=== PATIENT | female | born 1990 | race Caucasian/White ===

== ENCOUNTER 2016-06-01 11:27 | Emergency (ER) | payer OTHER ==
[2016-06-01 11:54] VITALS: BP 114/66
[2016-06-01 12:05] LABS: Hematocrit 42 % (35-47); Hemoglobin 14.4 g/dl (12.0-16.0); Mean Corpuscular HGB Conc 34 g/dl (31-36); Mean Corpuscular Hemoglobin 30 pg (27-31); Mean Corpuscular Volume 89 fL (80-97); Mean Platelet Volume 8 um3 (7.4-10.4); Red Blood Count 4.77 10^6/ul (4.0-5.4); Red Cell Distribution Width 13 % (10.5-15); White Blood Count 9.7 10^3/ul (3.5-10.8)
[2016-06-01 12:09] LABS: Urine Bilirubin Negative (Negative); Urine Glucose Negative (Negative); Urine Nitrite Negative (Negative)
[2016-06-01 12:20] LABS: ALT 23 U/L (7-52); AST 20 U/L (13-39); Albumin 4.3 g/dL (3.2-5.2); Alkaline Phosphatase 54 U/L (34-104); Anion Gap 6 mmol/L (2-11); Blood Urea Nitrogen 15 mg/dL (6-24); CO2 Carbon Dioxide 24 mmol/L (22-32); Chloride 107 mmol/L (101-111); EGFR African American 154.2 (>60); EGFR Non-African American 119.9 (>60); Globulin 2.5 g/dL (2-4); Glucose 91 mg/dL (70-100); Sodium 137 mmol/L (133-145); Total Protein 6.8 g/dL (6.4-8.9)
[2016-06-01 12:29] LABS: Benzodiazepine Urine Screen None Detected (None Detect)
[2016-06-01 12:43] LABS: Acetaminophen < 15 mcg/mL; Alcohol < 10 mg/dL (<10); Salicylate < 2.50 mg/dL (<30)
[2016-06-01 12:53] LABS: TSH (Thyroid Stimulating Horm) 1.48 mcIU/mL (0.34-5.60)
--- NOTE | 2016-06-01 15:34 | ED ---
Robbin Juan Billy, scribed for Rogers Velasco MD on 06/01/16 at 1231 . Psychiatric Complaint - HPI Summary HPI Summary: Patient is a 26 year-old female coming to [facility] for evaluation of her depression. Patient has a history of anxiety and depression, which has been made worse in the last few months due to stressors related to moving. She moved to [place] from [place] in November 2015, and moved again to [place] in February 2016. She was previously hospitalized for psychiatric treatment 3 years ago. She has had positive suicidal ideation since yesterday without any concrete plans, although she has a self-inflicted laceration on the left forearm. She denies any change in appetite or sleep. She states she started new medications yesterday. Last tetanus unknown. - History Of Current Complaint Chief Complaint: EDMentalHealth Time Seen by Provider: 06/01/16 11:45 Hx Obtained From: Patient Onset/Duration: Gradual Onset, Worse Since - worse since yesterday Timing: Constant Severity Initially: Moderate Severity Currently: Moderate Character: Depressed Aggravating Factor(s): Recent Stress Alleviating Factor(s): Nothing Associated Signs And Symptoms: Negative: Hallucinating, Sleep Disturbance, Appetite Change Related History: Positive For: Prior Psychiatric Issues Has Suicidal: Reports: Thoughts. Denies: With A Plan Has Homicidal: Denies: Thoughts, With A Plan - Allergies/Home Medications Allergies/Adverse Reactions: Allergies Allergy/AdvReac Type Severity Reaction Status Date / Time No Known Allergies Allergy Verified 06/01/16 11:44 Home Medications: Home Medications FLUoxetine CAP* [PROzac CAP*] 40 mg PO DAILY 06/01/16 [History Confirmed ] clonazePAM TAB(*) [Klonopin TAB(*)] 1 mg PO DAILY MDD 2 06/01/16 [History Confirmed 06/01/16] PMH/Surg Hx/FS Hx/Imm Hx Respiratory History: Reports: Hx Asthma Psychiatric History: Reports: Hx Anxiety, Hx Depression, Hx Post Traumatic Stress Disorder Infectious Disease History: No Infectious Disease History: Denies: Traveled Outside the [place] in Last 30 Days - Family History Known Family History: Negative: Cardiac Disease, Hypertension, Diabetes - Social History Alcohol Use: Daily Alcohol Amount: 4 beers daily lately, none today Substance Use Type: Reports: Marijuana Substance Use Comment - Amount & Last Used: prn, none today Smoking Status (MU): Light Every Day Tobacco Smoker Review of Systems Positive: Other - lac Positive: Depressed, Other - SI All Other Systems Reviewed And Are Negative: Yes Physical Exam - Summary Physical Exam Summary: VITAL SIGNS: Reviewed. GENERAL: Patient is a well developed and nourished female who is lying comfortable in the stretcher. Patient is not in any acute respiratory distress. HEAD AND FACE: Normocephalic EYES: PERRLA, EOMI x 2. EARS: Hearing grossly intact. MOUTH: Oropharynx within normal limits. NECK: Supple, trachea is midline, no adenopathy, no JVD, no carotid bruit. CHEST: Symmetric, no tenderness at palpation LUNGS: Clear to auscultation bilaterally. No wheezing or crackles. CVS: Regular rate and rhythm, S1 and S2 present, no murmurs or gallops appreciated. ABDOMEN: Soft, non-tender. Bowel sounds are normal. No abdominal abnormal pulsations. EXTREMITIES: Full ROM in all major joints, no edema, no cyanosis or clubbing. NEURO: Alert and oriented x 3. No acute neurological deficits. Speech is normal and follows commands. PSYCH: She is sad and tearful and exhibits a flat affect. She has suicidal ideation without any concrete plan. No homicidal ideation. SKIN: Dry and warm. There is a self-inflicted laceration of approximately 2 cm to the left forearm since yesterday. No signs of erythema or purulent discharge. Triage Information Reviewed: Yes Vital Signs On Initial Exam: Initial Vitals Temp Pulse Resp BP Pulse Ox 97.5 F 70 19 114/66 97 06/01/16 11:46 06/01/16 11:46 06/01/16 11:46 06/01/16 11:46 06/01/16 11:46 Vital Signs Reviewed: Yes - Byron Coma Scale Coma Scale Total: 15 Diagnostics - Vital Signs Vital Signs Temp Pulse Resp BP Pulse Ox 06/01/16 11:46 97.5 F 70 19 114/66 97 - Laboratory Lab Results: Lab Results 06/01/16 06/01/16 Range/Units 11:25 11:55 WBC 9.7 (3.5-10.8) 10^3/ul RBC 4.77 (4.0-5.4) 10^6/ul Hgb 14.4 (12.0-16.0) g/dl Hct 42 (35-47) % MCV 89 (80-97) fL MCH 30 (27-31) pg MCHC 34 (31-36) g/dl RDW 13 (10.5-15) % Plt Count 259 (150-450) 10^3/ul MPV 8 (7.4-10.4) um3 Neut % (Auto) 65.6 (38-83) % Lymph % (Auto) 22.7 L (25-47) % [place] % (Auto) 7.6 (1-9) % Eos % (Auto) 3.3 (0-6) % Baso % (Auto) 0.8 (0-2) % Absolute Neuts (auto) 6.4 (1.5-7.7) 10^3/ul Absolute Lymphs (auto) 2.2 (1.0-4.8) 10^3/ul Absolute Monos (auto) 0.7 (0-0.8) 10^3/ul Absolute Eos (auto) 0.3 (0-0.6) 10^3/ul Absolute Basos (auto) 0.1 (0-0.2) 10^3/ul Absolute Nucleated RBC 0.01 10^3/ul Nucleated RBC % 0.1 Urine Color Yellow Urine Appearance Clear Urine pH 7.0 (5-9) Ur Specific [place] 1.016 (1.010-1.030) Urine Protein Negative (Negative) Urine Ketones Negative (Negative) Urine Blood Negative (Negative) Urine Nitrate Negative (Negative) Urine Bilirubin Negative (Negative) Urine Urobilinogen Negative (Negative) Ur Leukocyte Esterase Negative (Negative) Urine Glucose Negative (Negative) Result Diagrams: 06/01/16 11:55 06/01/16 11:55 Lab Statement: Any lab studies that have been ordered have been reviewed, and results considered in the medical decision making process. Re-Evaluation - Re-Evaluation First Eval Re-Evaluation Time: 12:50 Course/Dx - Course Course Of Treatment: Medically clear for mental health evaluation at 1232. Assessment/Plan: Patient is a 26 year-old female coming to [facility] for evaluation of her depression. Patient has a history of anxiety and depression, which has been made worse in the last few months due to stressors related to moving. She moved to [place] from [place] in November 2015, and moved again to [place] in February 2016. She was previously hospitalized for psychiatric treatment 3 years ago. She has had positive suicidal ideation since yesterday without any concrete plans, although she has a self-inflicted laceration on the left forearm. She denies any change in appetite or sleep. She states she started new medications yesterday. Last tetanus unknown. Bloodwork WNL. Laceration of the left forearm unable to repair with sutures since it has been >12 hours. We irrigated it once and placed steri-strips. She was given tetanus booster. At this point, I re-evaluated the patient and she is awaiting MHE. Dr. Hernandez evaluated and assessed the patient and believes she is safe to discharge home for outpatient management follow up. Patient is hemodynamically stable, A&Ox3. - Differential Dx/Clinical Impression Differential Diagnosis/HQI/PQRI: Positive: Depression, Suicidal Ideation Provider Diagnosis: Depression - Physician Notifications Discussed Care Of Patient With: Shirin (mental health) @ [id number]: Dr. Hernandez has evaluated the patient and determined that she is safe for discharge. Discharge - Discharge Plan Condition: Stable Disposition: HOME Referrals: [facility] PHYSICIAN REFERRAL [Outside] The documentation as recorded by the Robbin beasley Billy accurately reflects the service I personally performed and the decisions made by me, Rogers Velasco MD.
== END 2016-06-01 15:18 | disposition home or self-care (01) ==
LOC: ED 11:27
DX: F32.9 Major depressive disorder, single episode, unspecified (principal); R45.851 Suicidal ideations; F17.210 Nicotine dependence, cigarettes, uncomplicated
CPT/HCPCS: 36415; 80053; 80307; 80320; 80329; 81003; 84443; 85025; 99284; G0480

== ENCOUNTER 2016-06-02 13:22 | Inpatient (IN) | payer OTHER ==
[2016-06-02] MEDS ORDERED: NS 0.9% 1000 ML* 1,000 ML IV ONE ×2 (13:41→18:37)
[2016-06-02] MEDS ORDERED: Pantoprazole IV* 40 MG IV ONE (13:41)
[2016-06-02] MEDS ORDERED: Ondansetron INJ* 2 MG/ML VIAL IV ONE (13:41)
[2016-06-02 14:45] LABS: Hematocrit 45 % (35-47); Hemoglobin 15.2 g/dl (12.0-16.0); Mean Corpuscular HGB Conc 34 g/dl (31-36); Mean Corpuscular Hemoglobin 30 pg (27-31); Mean Corpuscular Volume 90 fL (80-97); Mean Platelet Volume 8 um3 (7.4-10.4); Red Blood Count 5.03 10^6/ul (4.0-5.4); Red Cell Distribution Width 13 % (10.5-15); White Blood Count 13.6 10^3/ul (3.5-10.8)
[2016-06-02 14:49] LABS: Urine Bilirubin 2+ (Negative); Urine Glucose Negative (Negative); Urine Nitrite Negative (Negative)
[2016-06-02 15:05] LABS: ALT 21 U/L (7-52); AST 20 U/L (13-39); Albumin 4.5 g/dL (3.2-5.2); Alkaline Phosphatase 61 U/L (34-104); Anion Gap 9 mmol/L (2-11); BUN/Creatinine Ratio 25.4 (8-20); Blood Urea Nitrogen 17 mg/dL (6-24); CO2 Carbon Dioxide 20 mmol/L (22-32); Calcium 8.6 mg/dL (8.6-10.3); Chloride 108 mmol/L (101-111); EGFR African American 135.8 (>60); EGFR Non-African American 105.6 (>60); Globulin 2.6 g/dL (2-4); Glucose 95 mg/dL (70-100); Potassium 4.5 mmol/L (3.5-5.0); Sodium 137 mmol/L (133-145); Total Protein 7.1 g/dL (6.4-8.9)
[2016-06-02 15:08] LABS: Benzodiazepine Urine Screen Presumptive Positive (None Detect)
[2016-06-02 15:19] LABS: Acetaminophen < 15 mcg/mL; Alcohol < 10 mg/dL (<10); Salicylate < 2.50 mg/dL (<30)
--- NOTE | 2016-06-02 22:53 | ED ---
Brenda Juan Claudia, scribed for Lupillo Trejo MD on 06/02/16 at 1350 . Psychiatric Complaint - HPI Summary HPI Summary: 26 year old female presents to the ED via EMS with psychiatric complaint. Per EMS pt ingested an unknown amount of bleach witnessed by her friend and suspected 5% ammonia solution of Windex. Police note that also found cords hanging from the ceiling as if she intended to do harm to herself. Pt was [place] [facility] [place] and was d/c last night. Her friend also noted that she wanted to hurt herself with a drill last night. Pt has a PMHx of Anxiety, Depression and PTSD. - History Of Current Complaint Time Seen by Provider: 06/02/16 13:24 Hx Obtained From: EMS Onset/Duration: Sudden Onset, Lasting Hours, Still Present Character: Depressed Aggravating Factor(s): Nothing Alleviating Factor(s): Nothing Has Suicidal: Reports: Thoughts, With A Plan Ingestion History: Type/Name Of Drug - Bleach and Windex -(5% ammonia solution) - Allergies/Home Medications Allergies/Adverse Reactions: Allergies Allergy/AdvReac Type Severity Reaction Status Date / Time No Known Allergies Allergy Verified 06/01/16 11:44 Home Medications: Home Medications Pindolol(NF) 10 mg PO QPM 06/02/16 [History Confirmed 06/02/16] Topiramate TAB(*) [Topamax 100 mg tab] 100 mg PO QPM 06/02/16 [History Confirmed 06/02/16] PMH/Surg Hx/FS Hx/Imm Hx Previously Healthy: Yes Cardiovascular History: Denies: Hx Myocardial Infarction Respiratory History: Reports: Hx Asthma Psychiatric History: Reports: Hx Anxiety, Hx Depression, Hx Post Traumatic Stress Disorder Denies: Hx Eating Disorder, Hx of Violent Episodes Against Others - Family History Known Family History: Negative: Cardiac Disease, Hypertension, Diabetes - Social History Lives: With Family - significant other Alcohol Use: Daily Alcohol Amount: 4 beers daily lately, none today Substance Use Type: Reports: Marijuana Substance Use Comment - Amount & Last Used: prn, none today Smoking Status (MU): Light Every Day Tobacco Smoker Review of Systems Constitutional: Negative Negative: Fever Eyes: Negative ENT: Negative Cardiovascular: Negative Negative: Chest Pain Respiratory: Negative Gastrointestinal: Negative Genitourinary: Negative Musculoskeletal: Negative Skin: Negative Neurological: Negative Psychological: Normal All Other Systems Reviewed And Are Negative: Yes Physical Exam Triage Information Reviewed: Yes Vital Signs On Initial Exam: Initial Vitals Temp Pulse Resp BP Pulse Ox 98.9 F 99 24 111/80 98 06/02/16 14:29 06/02/16 14:29 06/02/16 14:29 06/02/16 14:29 06/02/16 14:29 Vital Signs Reviewed: Yes Appearance: Positive: Well-Appearing, No Pain Distress Skin: Positive: Warm, Skin Color Reflects Adequate Perfusion, Dry, Other - superficial lacerations to her right arm and the volar surafce and posterior surface of her right hand Head/Face: Positive: Normal Head/Face Inspection Eyes: Positive: Normal ENT: Positive: Normal ENT inspection Neck: Positive: Supple, Nontender, Other: - superficial lacerations bilaterally Respiratory/Lung Sounds: Positive: Clear to Auscultation, Breath Sounds Present Cardiovascular: Positive: RRR Abdomen Description: Positive: Nontender, Soft Musculoskeletal: Positive: Normal Neurological: Positive: Normal, Sensory/Motor Intact, Alert, Oriented to Person Place, Time Psychiatric: Positive: Affect/Mood Appropriate Diagnostics - Vital Signs Vital Signs Temp Pulse Resp BP Pulse Ox 06/02/16 21:30 107 110/74 97 06/02/16 21:00 76 16 90/56 100 06/02/16 20:30 74 17 91/61 100 06/02/16 20:00 79 88/51 100 06/02/16 19:30 77 15 90/51 100 06/02/16 19:00 76 17 88/64 100 06/02/16 18:47 91 23 94/65 100 06/02/16 18:31 101 25 87/59 96 06/02/16 18:23 88 16 104/67 99 06/02/16 18:01 97 21 96/57 99 06/02/16 18:00 98 21 100 06/02/16 17:30 89 15 100/61 86 06/02/16 17:00 88 96/69 100 06/02/16 16:30 99/72 06/02/16 16:26 88 23 89/54 98 06/02/16 16:00 89 16 98 06/02/16 15:12 98 99 06/02/16 14:41 98.9 F 93 24 111/80 98 06/02/16 14:29 98.9 F 99 24 111/80 98 - Laboratory Lab Results: Lab Results 06/02/16 06/02/16 06/02/16 Range/Units 14:25 14:25 14:25 WBC 13.6 H (3.5-10.8) 10^3/ul RBC 5.03 (4.0-5.4) 10^6/ul Hgb 15.2 (12.0-16.0) g/dl Hct 45 (35-47) % MCV 90 (80-97) fL MCH 30 (27-31) pg MCHC 34 (31-36) g/dl RDW 13 (10.5-15) % Plt Count 272 (150-450) 10^3/ul MPV 8 (7.4-10.4) um3 Neut % (Auto) 68.1 (38-83) % Lymph % (Auto) 21.2 L (25-47) % [place] % (Auto) 8.8 (1-9) % Eos % (Auto) 1.5 (0-6) % Baso % (Auto) 0.4 (0-2) % Absolute Neuts (auto) 9.2 H (1.5-7.7) 10^3/ul Absolute Lymphs (auto) 2.9 (1.0-4.8) 10^3/ul Absolute Monos (auto) 1.2 H (0-0.8) 10^3/ul Absolute Eos (auto) 0.2 (0-0.6) 10^3/ul Absolute Basos (auto) 0.1 (0-0.2) 10^3/ul Absolute Nucleated RBC 0 10^3/ul Nucleated RBC % 0 Sodium 137 (133-145) mmol/L Potassium 4.5 (3.5-5.0) mmol/L Chloride 108 (101-111) mmol/L Carbon Dioxide 20 L (22-32) mmol/L Anion Gap 9 (2-11) mmol/L BUN 17 (6-24) mg/dL Creatinine 0.67 (0.51-0.95) mg/dL Est GFR ( Amer) 135.8 (>60) Est GFR (Non-Af Amer) 105.6 (>60) BUN/Creatinine Ratio 25.4 H (8-20) Glucose 95 (70-100) mg/dL Lactic Acid (0.5-2.0) mmol/L Calcium 8.6 (8.6-10.3) mg/dL Total Bilirubin 0.40 (0.2-1.0) mg/dL AST 20 (13-39) U/L ALT 21 (7-52) U/L Alkaline Phosphatase 61 (34-104) U/L Total Protein 7.1 (6.4-8.9) g/dL Albumin 4.5 (3.2-5.2) g/dL Globulin 2.6 (2-4) g/dL Albumin/Globulin Ratio 1.7 (1-3) Beta HCG, Quant < 0.60 mIU/mL Urine Color Yellow Urine Appearance Cloudy Urine pH 5.0 (5-9) Ur Specific [place] 1.021 (1.010-1.030) Urine Protein Negative (Negative) Urine Ketones Trace H (Negative) Urine Blood Negative (Negative) Urine Nitrate Negative (Negative) Urine Bilirubin 2+ H (Negative) Urine Urobilinogen Negative (Negative) Ur Leukocyte Esterase Negative (Negative) Urine Glucose Negative (Negative) Salicylates < 2.50 (<30) mg/dL Urine Opiates Screen (None Detect) Acetaminophen < 15 mcg/mL Ur Barbiturates Screen (None Detect) Ur Phencyclidine Scrn (None Detect) Ur Amphetamines Screen (None Detect) U Benzodiazepines Scrn (None Detect) Urine Cocaine Screen (None Detect) U Cannabinoids Screen (None Detect) Serum Alcohol < 10 (<10) mg/dL 06/02/16 06/02/16 Range/Units 14:25 14:25 WBC (3.5-10.8) 10^3/ul RBC (4.0-5.4) 10^6/ul Hgb (12.0-16.0) g/dl Hct (35-47) % MCV (80-97) fL MCH (27-31) pg MCHC (31-36) g/dl RDW (10.5-15) % Plt Count (150-450) 10^3/ul MPV (7.4-10.4) um3 Neut % (Auto) (38-83) % Lymph % (Auto) (25-47) % [place] % (Auto) (1-9) % Eos % (Auto) (0-6) % Baso % (Auto) (0-2) % Absolute Neuts (auto) (1.5-7.7) 10^3/ul Absolute Lymphs (auto) (1.0-4.8) 10^3/ul Absolute Monos (auto) (0-0.8) 10^3/ul Absolute Eos (auto) (0-0.6) 10^3/ul Absolute Basos (auto) (0-0.2) 10^3/ul Absolute Nucleated RBC 10^3/ul Nucleated RBC % Sodium (133-145) mmol/L Potassium (3.5-5.0) mmol/L Chloride (101-111) mmol/L Carbon Dioxide (22-32) mmol/L Anion Gap (2-11) mmol/L BUN (6-24) mg/dL Creatinine (0.51-0.95) mg/dL Est GFR ( Amer) (>60) Est GFR (Non-Af Amer) (>60) BUN/Creatinine Ratio (8-20) Glucose (70-100) mg/dL Lactic Acid 0.7 (0.5-2.0) mmol/L Calcium (8.6-10.3) mg/dL Total Bilirubin (0.2-1.0) mg/dL AST (13-39) U/L ALT (7-52) U/L Alkaline Phosphatase (34-104) U/L Total Protein (6.4-8.9) g/dL Albumin (3.2-5.2) g/dL Globulin (2-4) g/dL Albumin/Globulin Ratio (1-3) Beta HCG, Quant mIU/mL Urine Color Urine Appearance Urine pH (5-9) Ur Specific [place] (1.010-1.030) Urine Protein (Negative) Urine Ketones (Negative) Urine Blood (Negative) Urine Nitrate (Negative) Urine Bilirubin (Negative) Urine Urobilinogen (Negative) Ur Leukocyte Esterase (Negative) Urine Glucose (Negative) Salicylates (<30) mg/dL Urine Opiates Screen None detected (None Detect) Acetaminophen mcg/mL Ur Barbiturates Screen None detected (None Detect) Ur Phencyclidine Scrn None detected (None Detect) Ur Amphetamines Screen None detected (None Detect) U Benzodiazepines Scrn Presumptive positive H (None Detect) Urine Cocaine Screen None detected (None Detect) U Cannabinoids Screen None detected (None Detect) Serum Alcohol (<10) mg/dL Result Diagrams: 06/02/16 14:25 06/02/16 14:25 Lab Statement: Any lab studies that have been ordered have been reviewed, and results considered in the medical decision making process. Course/Dx - Course Course Of Treatment: Ms. Cruz's story changed several times while here. She was observed for 6 hours with no change in her clinical condition after decontamination. She is medically cleared and we are awaiting MHE. Assessment/Plan: Code Adan Called 13:30 - Differential Dx/Clinical Impression Provider Diagnosis: Depression - Physician Notifications Discussed Care Of Patient With: Dr. Maria at change of shift Patient Is Medically Stable For: Psych Evaluation - 18:27 medically cleared Discharge - Discharge Plan Condition: Stable Disposition: OTHER Discharge Disposition Comment: Change of shift Referrals: Non Staff,Doctor [Primary Care Provider] - The documentation as recorded by the Brenda beasley Claudia accurately reflects the service I personally performed and the decisions made by me, Lupillo Trejo MD.
[2016-06-03] MEDS ORDERED: LORazepam TAB(*) 1 MG ONE (01:50)
[2016-06-03] MEDS ORDERED: LORazepam TAB(*) 1 MG PO ONE (01:55)
[2016-06-03] MEDS ORDERED: Al Hydrox/Mg Hydrox/Simet LIQ* 30 ML UDC PO PRN (06:16)
[2016-06-03] MEDS ORDERED: Acetaminophen TAB* 325 MG PO PRN (06:16)
[2016-06-03] MEDS ORDERED: Haloperidol TAB* 5 MG PO PRN (06:17)
[2016-06-03] MEDS ORDERED: LORazepam TAB(*) 1 MG PO PRN (06:21)
[2016-06-03] MEDS: Vitamin THERAPEUTIC TAB PO SCH (11:01)
[2016-06-03] MEDS: FLUoxetine CAP* 20 MG PO SCH (11:01)
[2016-06-03] MEDS: hydrOXYzine HCL TAB* 50 MG PO PRN ×2 (11:08→17:30)
--- NOTE | 2016-06-03 14:55 | HP ---
DATE OF ADMISSION: 06/03/2016. IDENTIFYING INFORMATION: The patient is a 26-year-old, white female admitted to the facility on 06/03/2016. The patient was seen, attempted to exam her and case was discussed with clinical staff available at the time of the visit. CHIEF COMPLAINT/REASON FOR ADMISSION: Note: At the time of my attempted clinical interview, the patient had been medicated with a combination of Haldol and Ativan and was extraordinarily somnolent and unable to participate in the clinical interview; therefore, the vast majority of this history and physical is obtained via chart review. HISTORY OF PRESENT ILLNESS: The patient was apparently brought to [facility] on a 9.41 status via ambulance secondary to anger, depression, and an attempted suicide. Apparently the patient had presented to [facility] on a 9.41 status after an overdose attempt to end her life. Apparently, she was having relational issues with her girlfriend. According to the triage note from the emergency department dated 06/02/2016, the patient informed the ER staff that she drank two cups of Clorox bleach as well as a half a bottle of Windex with intentions to end her life. Apparently, the patient also poured bleach over herself necessitating a code orange. EMS staff allegedly reported to the emergency room staff that "strong wires were found hanging from the ceiling in the form of a noose." When evaluated by the mental health destination imagination coordinator, the patient had stated that she was angry and depressed and jealous of her girlfriend. Apparently, she had seen pictures of her girlfriend with her ex-girlfriend and became quite angered. She had also apparently been drinking alcohol at that time, approximately four or five beers. There was also mention in the clinical record that the patient had impulsively chugged antifreeze, which she reported that she immediately vomited. PAST PSYCHIATRIC HISTORY: Apparently, the patient had seen Dr. King a few days ago on an outpatient basis. There is also mention in the triage record of her having visited [facility] on an outpatient basis. No other information about previous psychiatric hospitalizations is available to me at this time; however, there is mention in the clinical record of past psychotropic medication use, which has included but is not limited to Prozac, Pindolol, Klonopin, Topamax. PAST MEDICAL HISTORY: Positive for asthma. No other past medical history is available at this time. PAST SUBSTANCE USE HISTORY: The patient admitted in triage to consuming alcohol roughly every other day in the form of three to four beers. Her last use of alcohol was apparently yesterday. PSYCHOSOCIAL HISTORY: Per the emergency room attending physician's note, the patient was with her significant other. No other psychosocial history is available at this time. REVIEW OF SYSTEMS: At this time, I am unable to complete the review of systems with the past. PHYSICAL EXAMINATION At this time, I am unable to elicit the patient's cooperation and/or consent to perform a comprehensive physical examination. LABORATORY DATA: Review of laboratory data undertaken at this time, the following abnormals are noted. Hematology studies demonstrate an elevated white blood cell count at 13.6, lymphocyte percentage low at 21.2, absolute neutrophils are elevated at 9.2, absolute mono's are elevated at 1.2, remainder of hematology studies were within normal parameters. Chemistry studies demonstrate the following abnormalities: Carbon dioxide is low to 20, BUN/ creatinine ratio is elevated at 25.4, remainder of chemistries studies were within normal parameters. Urinalysis demonstrated trace ketones and 2+ urine bilirubin. Urine toxicology demonstrates a presumptive positive result for the benzodiazepine screen. There are no other laboratory studies available at this time for review. MENTAL STATUS EXAM: At this time, I am unable to complete the comprehensive mental status exam on this patient. IMPRESSION: The patient is a 26-year-old white female admitted to this facility on a 9.39 status after attempted suicide. She, at this time, is unable to participate in the initial admission assessment secondary to somnolence after requiring medication with Haldol and Ativan following an explosive argument with her significant other on the telephone. ADMITTING DIAGNOSES: Rule out major depressive disorder versus intermittent explosive disorder versus unspecified mood disorder. PLAN OF TREATMENT: Admit to Behavioral Services Unit. Diet will be regular. Vital signs per unit protocol. Activity as tolerated with restrictions to the unit. The patient will participate in treatment planning activities, individual , group and milieu therapy, as well as medication management sessions and discharge plan until she is stable or referred to a higher level of care. Treatment goal is stabilization. Prognosis is fair. Estimated length of stay is seven to ten days. DISCHARGE CRITERIA: The patient will be discharged when she is no longer a risk to herself or others and has met the criteria set forth by the treatment team for discharge. JAGDISH GARZON, ANNEALING FURNACE OPERATOR [id number]/[facility] #: [id number] CATHOLIC HEALTHRanjit
--- NOTE | 2016-06-03 19:57 | RAD ---
Indication: Fall, head injury. CT of the brain was performed without IV contrast. Ventricular structures are midline. No midline shift is noted. The extra-axial spaces are unremarkable. There is no evidence of intracranial mass or hemorrhage. Mastoid air cells and paranasal sinuses are otherwise unremarkable. IMPRESSION: No intracranial mass or hemorrhage is noted.
--- NOTE | 2016-06-04 08:17 | PN ---
Subjective - Subjective Service Type: 02908 Hosp care 25 min moderate complexity Subjective: CAT team was called as I was walking into the building around 730am. Staff note patient had been up for 1+ hour and had been selectively speaking with some staff. Staff report that she was able to make her needs known, but speech was slurred. Staff note that she was found on the floor and was unresponsive. She was lying on her back, off the seizure mat. Her eyes were open, she was breathing heavily with audible moan. She was not responsive to staff's attempts to engage. The CAT team decided to transfer her to Medicine for medical work- up. Objective - Appearance Appearance: Other - see Subjective Plan - Plan Treatment Plan: Name: SUBHASH MERINO Birthdate: 1990 [id number] Medications: Current Medications Acetaminophen (Tylenol Tab*) 650 mg PO Q4H PRN PRN Reason: PAIN or TEMP > 101 F Last Admin: 06/03/16 11:07 Dose: 650 mg Al Hydrox/Mg Hydrox/Simethicone (Maalox Plus*) 30 ml PO Q4H PRN PRN Reason: INDIGESTION Fluoxetine HCl (Prozac Cap*) 40 mg PO DAILY SHIRAZ Last Admin: 06/03/16 11:01 Dose: 40 mg Hydroxyzine HCl (Atarax Tab*) 50 mg PO Q6H PRN PRN Reason: ANXIETY Last Admin: 06/03/16 17:30 Dose: 50 mg Multivitamins (Theragran Tab*) 1 tab PO DAILY [facility] Last Admin: 06/03/16 11:01 Dose: 1 tab
[2016-06-04] MEDS ORDERED: LORazepam INJ* 2 MG/ML 1 ML VIAL IV PUSH PRN (08:20)
[2016-06-04] MEDS ORDERED: NS 0.9% 1000 ML* 1,000 ML IV SCH (08:30)
[2016-06-04 09:28] LABS: Hematocrit 52 % (35-47); Hemoglobin 16.8 g/dl (12.0-16.0); Mean Corpuscular HGB Conc 32 g/dl (31-36); Mean Corpuscular Hemoglobin 30 pg (27-31); Mean Corpuscular Volume 94 fL (80-97); Mean Platelet Volume 8 um3 (7.4-10.4); Red Blood Count 5.58 10^6/ul (4.0-5.4); Red Cell Distribution Width 13 % (10.5-15); White Blood Count 44.2 10^3/ul (3.5-10.8)
[2016-06-04 09:31] LABS: Add Diff/Slide Review? Slide Review Added; Comments Flag Yes
[2016-06-04 09:43] LABS: ALT 27 U/L (7-52); Albumin 5.2 g/dL (3.2-5.2); Alkaline Phosphatase 91 U/L (34-104); BUN/Creatinine Ratio 16.2 (8-20); Blood Urea Nitrogen 21 mg/dL (6-24); Calcium 9.1 mg/dL (8.6-10.3); Chloride 103 mmol/L (101-111); Creatine Kinase 189 U/L (10-223); EGFR African American 63.2 (>60); EGFR Non-African American 49.1 (>60); Globulin 3.3 g/dL (2-4); Glucose 215 mg/dL (70-100); Sodium 131 mmol/L (133-145); Total Protein 8.5 g/dL (6.4-8.9)
[2016-06-04] MEDS ORDERED: NS 0.9% 1000 ML* 2,000 ML IV ONE (10:06)
[2016-06-04] MEDS: FLUoxetine CAP* 20 MG PO SCH (10:08)
[2016-06-04] MEDS: Vitamin THERAPEUTIC TAB PO SCH (10:08)
[2016-06-04 10:18] LABS: Prolactin 72.3 ng/mL (1.0-25.0)
[2016-06-04 10:21] LABS: PCO2 Arterial 10 mmHg (35-45)
[2016-06-04 10:24] LABS: Urine Bacteria Absent (Absent); Urine Bilirubin Negative (Negative); Urine Glucose Negative (Negative); Urine Nitrite Negative (Negative)
[2016-06-04] MEDS: Lactulose 300 ML for PR* 10 GM/15 ML BTL PR SCH ×2 (10:24→17:41)
[2016-06-04 10:34] LABS: Benzodiazepine Urine Screen None Detected (None Detect)
[2016-06-04] MEDS ORDERED: Propofol* 100 ML ONE (10:36)
[2016-06-04] MEDS ORDERED: Vancomycin per Pharmacy* NOTE FOLLOW UP PRN (10:42)
[2016-06-04] MEDS ORDERED: fentaNYL* 50 MCG/ML 5 ML VIAL (250 MCG VIAL) ONE (10:44)
--- NOTE | 2016-06-04 10:44 | PN ---
Hospitalist Progress Note HOSPITALIST ADDENDUM Labs reviewed and patient re-evaluated at bedside. CBC showed WBC 44k with 90% neut, CMP creat 1.3, ammonia 215, ABG pH<7, pCO2 10. Transferred immediately to ICU for further management. Clinical picture compatible with metabolic acidosis, unable to compensate with respiratory alkalosis, secondary to sepsis with MSOF vs ingestion. If infectious, source is unclear. Will panculture and start Vanco/Cefepime empirically. Continue aggressive IVF. With her history, possibility of ingestion is high on the differential list, but unclear what she really took. I called her SO (Odalis Lenz) and left a message asking her to call me back. Critical care consultation requested with Dr. Sanabria.
[2016-06-04] MEDS ORDERED: Propofol* 10 MG/ML 20 ML BTL IV PUSH ONE (10:48)
[2016-06-04] MEDS ORDERED: Vancomycin(*) 1,250 MG in NS 0.9% 250 ML* 250 ML IVPB ONE (11:00)
[2016-06-04] MEDS ORDERED: Cefepime(*) 1 GM in NS 0.9% 50 ML* 50 ML IVPB SCH (11:00)
[2016-06-04] MEDS ORDERED: Sodium Bicarbonate 8.4%* 50 ML SYRINGE ONE (11:16)
[2016-06-04] MEDS ORDERED: Sodium Bicarbonate 8.4% IV* 50 ML VIAL IV ONE (11:25)
[2016-06-04] MEDS ORDERED: LORazepam INJ* 2 MG/ML 1 ML VIAL IV PUSH ONE (11:26)
[2016-06-04] MEDS ORDERED: NS 0.9% IV ONE (11:29)
[2016-06-04 11:31] LABS: AST 28 U/L (13-39); Potassium 5.9 mmol/L (3.5-5.0)
[2016-06-04 11:45] LABS: Anion Gap 21.00001 mmol/L (2-11)
[2016-06-04 11:47] LABS: CO2 Carbon Dioxide < 7 mmol/L (22-32)
[2016-06-04] MEDS ORDERED: LORazepam INJ* 2 MG/ML 1 ML VIAL ONE (11:47)
[2016-06-04] MEDS ORDERED: Propofol* 100 ML IV SCH (12:00)
[2016-06-04] MEDS: Pantoprazole IV* 40 MG IV SCH (12:12)
[2016-06-04] MEDS: Heparin VIAL(*) 5000 UNITS/ML VIAL (FIVE THOUSAND) SUBCUT SCH ×2 (12:12→21:11)
[2016-06-04 12:21] LABS: Magnesium 2.7 mg/dL (1.9-2.7); Phosphorus 8.2 mg/dL (2.5-5.0)
[2016-06-04] MEDS: Chlorhexidine MOUTHWASH 0.12%* 15 ML UDC TOPICAL SCH ×4 (12:48→23:41)
--- NOTE | 2016-06-04 13:11 | PN ---
Progress Note - Progress Note Note: CRITICAL CARE MEDICINE PROCEDURE NOTE DATE: 06/04/16 TIME: 1100 SERVICE: Critical Care Medicine LOCATION OF PROCEDURE: ICU PROCEDURE: Endotracheal intubation PROCEDURALIST: Dr. Sanabria Consent obtain: No, procedure performed emergently Time out held: Not indicated INDICATION: Acute respiratory failure, severe acidosis. PROCEDURE: Oxygenation maintained and vitals monitored. Patient in supine position. Bag ventilation needed. 2 amps NaHCO3 instilled. Pre-medication with fentanyl 200 mcg iv. Bradycardia anticipated and atropine 0.5mg given. Propofol 50mg iv given. Glidescope #3 inserted with Grade 1 view obtained. Thick oralpharyngeal secretions. 7.5 endotracheal tube inserted to 22cm lip. Good chest rise with breath sounds appreciated in bilaterally lung watson. EtCO2 + color change. Portable chest x-ray pending. Patient otherwise tolerated well. Jordin Sanabria, DO
--- NOTE | 2016-06-04 13:14 | PN ---
Progress Note - Progress Note Note: CRITICAL CARE MEDICINE PROCEDURE NOTE DATE: 06/04/16 TIME: 1115 SERVICE: Critical Care Medicine LOCATION OF PROCEDURE: ICU PROCEDURE: Central line insertion. PROCEDURALIST: Dr. Sanabria Consent obtain: No, procedure performed emergently Time out held: Yes INDICATION: Severe metabolic acidosis and hypovolemic shock. PROCEDURE: Oxygenation maintained and vitals monitored. Patient in supine position to [place]. SITE: RIGHT Subclavian. Site preparation with chlorhexidine locally. Full sterile drape, gown, hat, mask, gloves. 5ml 1% Lidocaine utilized at incision site. Standard sterile Seldinger technique utilized and catheter was inserted to 16 cm and sutured in place. Good blood return. Minimal blood loss. Site dressed with tegaderm. Portable chest x-ray pending. Patient otherwise tolerated well. Jordin Sanabria DO
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
[2016-06-04] MEDS ORDERED: Thiamine IV* 100 MG/ML 2 ML VIAL IV ONE (14:20)
[2016-06-04] MEDS ORDERED: FOMEPIZOLE IVPB ONE (15:00)
[2016-06-04] MEDS ORDERED: NS 0.9% IVPB ONE (15:00)
[2016-06-04] MEDS: Sodium Bicarbonate 8.4% IV* 150 MEQ in D5W 1000 ML BAG* 1,000 ML IVPB SCH ×2 (15:21→21:17)
[2016-06-04] MEDS ORDERED: Calcium Gluconate INJ* 4 GM in NS 0.9% 250 ML* 250 ML IV ONE (18:00)
[2016-06-04] MEDS: Propofol* 100 ML IV SCH ×2 (18:20→21:37)
[2016-06-04] MEDS: KCL 20 MEQ/100 ML IVPREMIX* 20 MEQ/100 ML BAG IV SCH ×3 (18:28→23:08)
[2016-06-05] MEDS: Propofol* 100 ML IV SCH ×7 (02:26→21:47)
[2016-06-05] MEDS: FOMEPIZOLE IVPB SCH ×2 (02:32→15:56)
[2016-06-05] MEDS: NS 0.9% IVPB SCH ×2 (02:32→15:56)
[2016-06-05] MEDS: KCL 20 MEQ/100 ML IVPREMIX* 20 MEQ/100 ML BAG IV SCH ×2 (03:11→05:27)
[2016-06-05] MEDS: Chlorhexidine MOUTHWASH 0.12%* 15 ML UDC TOPICAL SCH ×5 (05:28→20:05)
[2016-06-05] MEDS: Heparin VIAL(*) 5000 UNITS/ML VIAL (FIVE THOUSAND) SUBCUT SCH ×3 (05:33→21:47)
[2016-06-05] MEDS ORDERED: Potassium Phosphate IV* 15 MMOLE in NS 0.9% 250 ML* 250 ML IVPB ONE (07:55)
[2016-06-05] MEDS: Sodium Bicarbonate 8.4% IV* 150 MEQ in D5W 1000 ML BAG* 1,000 ML IVPB SCH (09:00)
--- NOTE | 2016-06-05 11:28 | PN ---
Progress Note - Progress Note Note: CRITICAL CARE MEDICINE DATE: 06/05/16 TIME: 950 SUBJECTIVE: Patient seen and examined. PHYSICAL EXAM: Vital Signs: Reviewed. Neurologic: on prop. álvarez when lowered and grimace. pupils small and reactive. overbreathing on vent. HEENT: anciteric, ett in place, (should have mention with intubation note yesterday) no macro caustic injury seen in upper airways. Cardiovascular: distant, tachy, no m Respiratory: coarse bl, no rales Abdomen: soft, nt, no masses Extremities: areas of ecchymosis. inc edema Access: piv LABS: Reviewed. IMAGING: Reviewed. MEDICATIONS: Reviewed. ASSESSMENT: 26 F Severe AG metabolic acidosis - likely methanol (as her friends brought in [facility] [employer] fluid bottle which they state she might have drank - methyl alcohol) +/- ethylene glycol. Possible seizure sec to metabolic derangement Hypovolemic shock - improved Coma on icu admission - metabolic induced; improving Acute resp failure - stabilized Lactic acidosis - cleared Psychological derangement with suicide attempt PLAN: Neurologic: better. arousing off sedation this am and see where her dyanamics go. still may have significant multifactorial encephalopathy. see how her clinical course goes. may consider eeg for tomorrow. keep prop today. Cardiovascular: perfused. vol status up. off ivf today. off bicarb Respiratory: lali vent with pcv. may be able to covert to cpap depending on mentation. vent protection Gastrointestinal: ogt. sup. amm clear as expected. start tropic tf today to help bowel integrity. Renal/Metabolic: resuscitation recovery of renal function and toxin clearance. further labs pending still. off bicarb - now a bit alkalotic. repelte k, phos, etc and f/u Infectious Disease: no abx needs Hematology: hemoconcentration equilibrated now. hsq Endocrine: no steroids. glu ok Musculoskeletal: bedrest currently. Psych/Social: f/u with psych and family dynamics Supportive and preventative care as ordered. SUP: ppi VTE prophylaxis: heparin Place yusuf catheter given critical illness, monitoring needs for accurate assessment of NED and KDIGO criteria for critically ill patients and to avoid potential harms of urinary retention, skin breakdown/ulcers. Disposition: ICU, critical Code Status: Full Critical Care Time: 40min Jordin Sanabria DO
[2016-06-05] MEDS: Pantoprazole IV* 40 MG IV SCH (12:09)
[2016-06-05] MEDS ORDERED: D5W KCl 40 MEQ 1000 ML* 1,000 ML IV SCH (14:00)
[2016-06-05] MEDS ORDERED: Potassium Phosphate IV* 30 MMOLE in NS 0.9% 250 ML* 250 ML IVPB ONE (14:00)
[2016-06-05] MEDS: D5W KCl 40 MEQ 1000 ML* 1,000 ML IVPB SCH (20:27)
[2016-06-06] MEDS: Chlorhexidine MOUTHWASH 0.12%* 15 ML UDC TOPICAL SCH ×3 (00:03→08:52)
[2016-06-06] MEDS: Propofol* 100 ML IV SCH ×3 (01:00→08:17)
[2016-06-06] MEDS: NS 0.9% IVPB SCH (03:07)
[2016-06-06] MEDS: FOMEPIZOLE IVPB SCH (03:07)
[2016-06-06] MEDS: Heparin VIAL(*) 5000 UNITS/ML VIAL (FIVE THOUSAND) SUBCUT SCH (05:36)
[2016-06-06] MEDS: D5W KCl 40 MEQ 1000 ML* 1,000 ML IVPB SCH (06:32)
[2016-06-06 06:36] VITALS: BP 109/63
== END 2016-06-04 08:17 | disposition short-term general hospital (02) | DRG 753 ==
LOC: ED 13:22 → EEVIPCON 06-03 06:00 → OBSVTOIN 06-03 06:00 → BSU 06-03 06:00 → INTOOBSV 06-03 06:00 → MEDTELE 06-04 08:12 → INTOOBSV 06-04 10:45 → ICU 06-04 10:45 → OBSVTOIN 06-04 10:45
PROVIDERS: ADMIT Psychiatry & Neurology Psychiatry; ATTEND Psychiatry & Neurology Psychiatry
PROC: 0BH17EZ Insertion of Endotracheal Airway into Trachea, Via Natural or Artificial Opening (ICD-10-PCS; principal; 2016-06-04)
PROC: 05H533Z Insertion of Infusion Device into Right Subclavian Vein, Percutaneous Approach (ICD-10-PCS; 2016-06-04)
PROC: 5A1935Z Respiratory Ventilation, Less than 24 Consecutive Hours (ICD-10-PCS; 2016-06-04)
DX: F39 Unspecified mood [affective] disorder (principal); R57.1 Hypovolemic shock; J96.00 Acute respiratory failure, unspecified whether with hypoxia or hypercapnia; J96.02 Acute respiratory failure with hypercapnia; R40.20 Unspecified coma; E87.2 Acidosis; F63.81 Intermittent explosive disorder; J45.909 Unspecified asthma, uncomplicated; Z72.89 Other problems related to lifestyle; F32.9 Major depressive disorder, single episode, unspecified; T54.92XA Toxic effect of unspecified corrosive substance, intentional self-harm, initial encounter; T54.3X2A Toxic effect of corrosive alkalis and alkali-like substances, intentional self-harm, initial encounter; Y92.9 Unspecified place or not applicable; F41.9 Anxiety disorder, unspecified; F43.10 Post-traumatic stress disorder, unspecified; F17.200 Nicotine dependence, unspecified, uncomplicated; F12.90 Cannabis use, unspecified, uncomplicated; R40.2430 Glasgow coma scale score 3-8, unspecified time; T52.8X2A Toxic effect of other organic solvents, intentional self-harm, initial encounter
CPT/HCPCS: 36415; 36600; 70450; 71010; 71250; 80048; 80053; 80076; 80307; 80320; 80329; 81003; 81015; 82140; 82330; 82550; 82803; 83605; 83735; 83930; 84100; 84146; 84702; 85025; 85027; 85610; 87040; 87641; 94002; 94003; 94760; 96374; 96375; 99285; A9270-GY; G0480; J0610; J0692; J1644; J2060; J2405; J2704; J3010; J3370; J3475; J3480; J7060

== ENCOUNTER 2016-06-04 08:17 | Inpatient (IN) | payer OTHER ==
[~2016-06-04 08:17] MED LIST: Haloperidol TAB* 5 MG ONE; LORazepam TAB(*) 1 MG ONE
--- NOTE | 2016-06-04 09:03 | RAD ---
Amended report to correct patient account number. INDICATION: Exposure to chemicals. Evaluate for pneumonitis. COMPARISON: None TECHNIQUE: Noncontrast source images were obtained from the thoracic inlet to the hemidiaphragms. Coronal and sagittal reconstructed images were acquired. The examination is mildly limited due to motion artifact The visualized neck to include the thyroid appear normal. Chest wall: There are no acute abnormalities of the bony thorax or chest wall. There is no supraclavicular, infraclavicular, or axillary lymphadenopathy. Lungs : There are no pulmonary parenchymal masses or infiltrates. The pulmonary interstitium appears normal. There are no endobronchial lesions. Cardiomediastinal structures: The heart is normal in size. There is no pericardial effusion. There is no evidence of aortic aneurysm or dissection. The pulmonary vessels appear normal. There is no mediastinal or hilar adenopathy. The GE junction appears patulous. There is air within the esophagus. Pleura : There are no pleural-based masses or effusions. Other: There are no acute or significant CT findings of the visualized upper abdomen. IMPRESSION: Mildly limited examination due to motion artifact. No significant airspace disease. MTDD
--- NOTE | 2016-06-04 09:05 | RAD ---
Amended report to correct patient account number. INDICATION: Altered mental status COMPARISON: CT brain previous day TECHNIQUE: Noncontrast axial source images were acquired from the skull base to the vertex. This examination is limited due to motion artifact. Multiple images were repeated FINDINGS: Ventricles/sulci: The ventricles and cisterns are normal in size and configuration for age. Brain parenchyma: There is no focal parenchymal finding, evidence of intracranial mass, or intracranial mass effect. Intracranial hemorrhage:None. Extra-axial spaces: There are no abnormal extra axial fluid collections or evidence of extra-axial mass. Calvarium: There is no calvarial fracture or other calvarial abnormality. Scalp: There is no evidence of scalp or extracalvarial soft tissue abnormality. Paranasal sinuses/mastoid: The paranasal sinuses and mastoid air cells are clear. Other: None. IMPRESSION: Limited examination due to motion artifact. No significant CT abnormalities are identified MTDD
[2016-06-04] MEDS ORDERED: Sodium Bicarbonate 8.4%* 50 ML SYRINGE ONE (10:39)
[2016-06-04] MEDS ORDERED: Atropine SYRINGE* 0.1 MG/ML 10 ML SYRINGE (1 MG) ONE (10:43)
--- NOTE | 2016-06-04 12:13 | RAD ---
Amended report to correct patient account number. INDICATION: Inspiratory distress. Intubation. Central line COMPARISON: CT chest same date TECHNIQUE: An AP portable view obtained at 1154 hours is submitted. FINDINGS: Bones/Soft Tissues: There are no acute bony findings. There is endotracheal intubation. The endotracheal tube is near the level the darshan. A nasogastric tube passes normally through the mediastinum. There is a right subclavian catheter terminating in the superior vena cava. There is no pneumothorax. Cardiomediastinal: The cardiomediastinal silhouette is normal. Lungs: There are no infiltrates. Pleura: There are no pleural effusions. Other: None IMPRESSION: Tubes and catheters positioned as described. Lungs clear. MTDD
[2016-06-04 13:42] LABS: Hematocrit 36 % (35-47); Hemoglobin 11.8 g/dl (12.0-16.0); Mean Corpuscular HGB Conc 33 g/dl (31-36); Mean Corpuscular Hemoglobin 30 pg (27-31); Mean Corpuscular Volume 90 fL (80-97); Mean Platelet Volume 7 um3 (7.4-10.4); Red Blood Count 3.99 10^6/ul (4.0-5.4); Red Cell Distribution Width 13 % (10.5-15); White Blood Count 24.2 10^3/ul (3.5-10.8)
[2016-06-04 13:44] LABS: Venous Bicarbonate HCO3 9.3 mmol/L (24-28)
[2016-06-04 13:55] LABS: BUN/Creatinine Ratio 22.6 (8-20); EGFR African American 148.5 (>60); EGFR Non-African American 115.5 (>60); Potassium 3.1 mmol/L (3.5-5.0)
[2016-06-04 13:56] LABS: Calcium 4.9 mg/dL (8.6-10.3)
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
[2016-06-04 16:57] LABS: Venous Bicarbonate HCO3 11.5 mmol/L (24-28)
[2016-06-04 17:12] LABS: BUN/Creatinine Ratio 19.4 (8-20); EGFR African American 148.5 (>60); EGFR Non-African American 115.5 (>60)
[2016-06-04 17:15] LABS: Calcium 5.6 mg/dL (8.6-10.3); Potassium 2.6 mmol/L (3.5-5.0)
[2016-06-05 02:06] LABS: BUN/Creatinine Ratio 13.2 (8-20); Calcium 7.3 mg/dL (8.6-10.3); EGFR Non-African American 138.4 (>60)
[2016-06-05 02:08] LABS: Potassium 2.7 mmol/L (3.5-5.0)
[2016-06-05 02:31] LABS: Magnesium 1.1 mg/dL (1.9-2.7)
[2016-06-05 06:44] LABS: Hematocrit 33 % (35-47); Hemoglobin 11.5 g/dl (12.0-16.0); Mean Corpuscular HGB Conc 35 g/dl (31-36); Mean Corpuscular Hemoglobin 30 pg (27-31); Mean Corpuscular Volume 86 fL (80-97); Mean Platelet Volume 7 um3 (7.4-10.4); Red Blood Count 3.82 10^6/ul (4.0-5.4); Red Cell Distribution Width 13 % (10.5-15); Venous Bicarbonate HCO3 28.2 mmol/L (24-28); White Blood Count 12.3 10^3/ul (3.5-10.8)
[2016-06-05 06:59] LABS: ALT 21 U/L (7-52); AST 24 U/L (13-39); Albumin 2.7 g/dL (3.2-5.2); Alkaline Phosphatase 46 U/L (34-104); BUN/Creatinine Ratio 10.4 (8-20); Blood Urea Nitrogen 5 mg/dL (6-24); CO2 Carbon Dioxide 32 mmol/L (22-32); Calcium 7.1 mg/dL (8.6-10.3); Chloride 110 mmol/L (101-111); EGFR African American 199.5 (>60); EGFR Non-African American 155.1 (>60); Globulin 1.8 g/dL (2-4); Glucose 147 mg/dL (70-100); Indirect Bilirubin 0.4 mg/dL (0.3-1.0); Sodium 147 mmol/L (133-145); Total Protein 4.5 g/dL (6.4-8.9)
[2016-06-05 07:02] LABS: Anion Gap 5 mmol/L (2-11); Phosphorus < 1.0 mg/dL (2.5-5.0); Potassium 2.5 mmol/L (3.5-5.0)
[2016-06-06 11:53] LABS: Calcium 7.7 mg/dL (8.6-10.3); EGFR African American 226.5 (>60); EGFR Non-African American 176.1 (>60); Magnesium 1.9 mg/dL (1.9-2.7); Phosphorus 2.1 mg/dL (2.5-5.0); Potassium 2.9 mmol/L (3.5-5.0)
[2016-06-06] MEDS ORDERED: levETIRAcetam IV* 1,000 MG in NS 100 mL IVPB SCH (13:00)
[2016-06-06] MEDS: Chlorhexidine MOUTHWASH 0.12%* 15 ML UDC TOPICAL SCH ×4 (13:09→23:53)
[2016-06-06] MEDS: Pantoprazole IV* 40 MG IV SCH (13:10)
[2016-06-06] MEDS: Heparin VIAL(*) 5000 UNITS/ML VIAL (FIVE THOUSAND) SUBCUT SCH ×2 (13:17→21:32)
[2016-06-06] MEDS ORDERED: fentaNYL* 50 MCG/ML 2 ML VIAL (100 MCG VIAL) ONE (13:32)
[2016-06-06] MEDS: Propofol* 100 ML IV SCH ×4 (13:34→23:53)
--- NOTE | 2016-06-06 13:39 | PN ---
Progress Note - Progress Note Note: CRITICAL CARE MEDICINE DATE: 06/06/16 TIME: 1025 SUBJECTIVE: Patient seen and examined. PHYSICAL EXAM: Vital Signs: Reviewed. Neurologic: on prop. álvarez spont. pupils small and reactive. overbreathing on vent. HEENT: anciteric, ett in place Cardiovascular: distant, tachy, no m Respiratory: coarse bl, no rales Abdomen: soft, nt, no masses Extremities: areas of ecchymosis. + edema Access: R cvc LABS: Reviewed. IMAGING: Reviewed. MEDICATIONS: Reviewed. ASSESSMENT: 26 F Severe AG metabolic acidosis - likely methanol +/- ethylene glycol. Possible seizure sec to metabolic derangement - stabilized Hypovolemic shock - improved Coma with metabolic encephalopathy on icu admission - improving Acute resp failure - stabilized Lactic acidosis - cleared Psychological derangement with suicide attempt PLAN: Neurologic: better. will come off propofol today and see how she does. need to access mentation. multifactorial encephalopathy. Cardiovascular: perfused. vol status up but able to mobilize. water Respiratory: lali vent with pcv. cpap later perhaps. Gastrointestinal: ogt. sup. inc feeds Renal/Metabolic: good Uout. repelte k, phos, etc and f/u Infectious Disease: no abx needs Hematology: stable. hsq Endocrine: no steroids. glu ok Musculoskeletal: bedrest currently. Psych/Social: f/u with psych and family dynamics. social work eval Supportive and preventative care as ordered. SUP: ppi VTE prophylaxis: heparin Place yusuf catheter given critical illness, monitoring needs for accurate assessment of NED and KDIGO criteria for critically ill patients and to avoid potential harms of urinary retention, skin breakdown/ulcers. Disposition: ICU, critical Code Status: Full Critical Care Time: 35min FEsau Sanabria DO
[2016-06-06] MEDS ORDERED: Magnesium Sulfate 2 GM IV* 2 GM/50 ML BAG IVPB ONE (13:40)
[2016-06-06] MEDS ORDERED: fentaNYL* 50 MCG/ML 2 ML VIAL (100 MCG VIAL) IV SLOW PU ONE (13:40)
[2016-06-06] MEDS: Potassium Chloride LIQUID* 20 MEQ PACKET PO SCH ×3 (13:41→21:33)
[2016-06-06] MEDS ORDERED: Propofol* 1000 MG (10 MG/ML 100 ml) @ Per Protocol (in ICU Pyxis) IV SCH (14:00)
[2016-06-06] MEDS ORDERED: Potassium Phosphate IV* 20 MMOLE in NS 0.9% 250 ML* 250 ML IVPB ONE (14:00)
[2016-06-06] MEDS ORDERED: NS 0.9% IVPB SCH (15:00)
[2016-06-06] MEDS ORDERED: FOMEPIZOLE IVPB SCH (15:00)
[2016-06-06] MEDS ORDERED: D5W KCl 40 MEQ 1000 ML* 1,000 ML IVPB SCH (16:00)
[2016-06-06] MEDS: Potassium Chloride IV* 40 MEQ in D5W 1000 ML BAG* 1,000 ML IVPB SCH (18:34)
[2016-06-07] MEDS: levETIRAcetam 500 MG IVPREMIX* 500 MG/100 ML BAG IV SCH ×2 (00:56→13:09)
[2016-06-07] MEDS: Propofol* 100 ML IV SCH ×3 (03:33→10:38)
[2016-06-07] MEDS: Potassium Chloride IV* 40 MEQ in D5W 1000 ML BAG* 1,000 ML IVPB SCH (04:26)
[2016-06-07] MEDS: Chlorhexidine MOUTHWASH 0.12%* 15 ML UDC TOPICAL SCH ×3 (05:25→13:09)
[2016-06-07] MEDS: Heparin VIAL(*) 5000 UNITS/ML VIAL (FIVE THOUSAND) SUBCUT SCH ×3 (05:28→22:30)
[2016-06-07 06:11] LABS: Hematocrit 36 % (35-47); Hemoglobin 12.3 g/dl (12.0-16.0); Mean Corpuscular HGB Conc 34 g/dl (31-36); Mean Corpuscular Hemoglobin 30 pg (27-31); Mean Corpuscular Volume 88 fL (80-97); Mean Platelet Volume 8 um3 (7.4-10.4); Red Cell Distribution Width 13 % (10.5-15); White Blood Count 10.2 10^3/ul (3.5-10.8)
[2016-06-07 06:22] LABS: BUN/Creatinine Ratio 11.1 (8-20); Calcium 8.7 mg/dL (8.6-10.3); EGFR African American 214.9 (>60); EGFR Non-African American 167.1 (>60); Magnesium 2.2 mg/dL (1.9-2.7); Phosphorus 3.1 mg/dL (2.5-5.0); Potassium 3.9 mmol/L (3.5-5.0)
[2016-06-07] MEDS ORDERED: fentaNYL* 50 MCG/ML 2 ML VIAL (100 MCG VIAL) IV SLOW PU PRN (09:28)
[2016-06-07] MEDS ORDERED: LORazepam INJ* 2 MG/ML 1 ML VIAL IV PUSH ONE (11:38)
[2016-06-07] MEDS ORDERED: LORazepam INJ* 2 MG/ML 1 ML VIAL ONE (11:40)
--- NOTE | 2016-06-07 12:27 | PN ---
Progress Note - Progress Note Note: CRITICAL CARE MEDICINE DATE: 06/07/16 TIME: 1025 SUBJECTIVE: Patient seen and examined. PHYSICAL EXAM: Vital Signs: Reviewed. Neurologic: on prop. pupils small and reactive. overbreathing on vent. HEENT: anciteric, ett in place Cardiovascular: distant, tachy, no m Respiratory: coarse bl, no rales Abdomen: soft, nt, no masses Extremities: areas of ecchymosis. + edema Access: R cvc LABS: Reviewed. IMAGING: Reviewed. MEDICATIONS: Reviewed. ASSESSMENT: 26 F Severe AG metabolic acidosis - likely methanol +/- ethylene glycol. Possible seizure sec to metabolic derangement - stabilized Hypovolemic shock - improved Coma with metabolic encephalopathy on icu admission - improving Acute resp failure - stabilized Lactic acidosis - cleared Psychological derangement with suicide attempt PLAN: Neurologic: on prop. vacation this am. given fent for any pain and see where her clinical status is. may need eeg to correlate. Cardiovascular: perfused. vol status up but tolerable. Respiratory: lali vent with pcv. cpap trial off sedation this am with apnea spells. simv for now. Gastrointestinal: ogt. sup. tf Renal/Metabolic: good Uout. lytes stabilized Infectious Disease: no abx needs Hematology: stable. hsq Endocrine: no steroids. glu ok Musculoskeletal: bedrest currently. Psych/Social: f/u with psych and family dynamics - social work f/u Supportive and preventative care as ordered. SUP: ppi VTE prophylaxis: heparin [place] catheter given critical illness, monitoring needs for accurate assessment of NED and KDIGO criteria for critically ill patients and to avoid potential harms of urinary retention, skin breakdown/ulcers. Disposition: ICU, critical Code Status: Full Critical Care Time: 35min FEsau Sanabria DO
[2016-06-07] MEDS: Pantoprazole IV* 40 MG IV SCH (13:09)
[2016-06-07] MEDS: fentaNYL* 50 MCG/ML 2 ML VIAL (100 MCG VIAL) IV SLOW PU PRN (16:03)
[2016-06-07] MEDS: LORazepam INJ* 2 MG/ML 1 ML VIAL IV PUSH PRN (16:09)
--- NOTE | 2016-06-07 16:56 | PN ---
Progress Note - Progress Note Note: CRITICAL CARE MEDICINE DATE: 06/07/16 TIME: 1345 Off sedation. following commands. mild agitation. will liberate from vent. f/u care. Disposition: ICU, critical Code Status: Full Critical Care Time: 10min FEsau Sanabria DO
[2016-06-08] MEDS: Acetaminophen TAB* 325 MG PO PRN (01:18)
[2016-06-08] MEDS: LORazepam INJ* 2 MG/ML 1 ML VIAL IV PUSH PRN (02:33)
[2016-06-08] MEDS: fentaNYL* 50 MCG/ML 2 ML VIAL (100 MCG VIAL) IV SLOW PU PRN (02:34)
[2016-06-08] MEDS: Heparin VIAL(*) 5000 UNITS/ML VIAL (FIVE THOUSAND) SUBCUT SCH ×3 (06:07→21:17)
[2016-06-08 06:54] LABS: BUN/Creatinine Ratio 21.3 (8-20); EGFR African American 204.4 (>60); Magnesium 2.1 mg/dL (1.9-2.7); Phosphorus 4.1 mg/dL (2.5-5.0)
[2016-06-08] MEDS: Vitamin THERAPEUTIC TAB PO SCH (11:12)
--- NOTE | 2016-06-08 11:30 | PN ---
Progress Note - Progress Note Note: CRITICAL CARE MEDICINE DATE: 06/08/16 TIME: 1025 SUBJECTIVE: Patient seen and examined. Blurry vision reported PHYSICAL EXAM: Vital Signs: Reviewed. Neurologic: communicating. nonfocal. pupils small and reactive. seems to have all visual watson but blurriness reported. HEENT: anciteric Cardiovascular: reg, no m Respiratory: mild rhonchi Abdomen: soft, nt, no masses Extremities: areas of ecchymosis. + edema Access: R cvc LABS: Reviewed. IMAGING: Reviewed. MEDICATIONS: Reviewed. ASSESSMENT: 26 F Severe AG metabolic acidosis - methanol Possible seizure sec to metabolic derangement - recovered Hypovolemic shock - resolved Coma with metabolic encephalopathy on icu admission - recovered Acute resp failure - recovering Lactic acidosis - cleared Psychological derangement with suicide attempt Blurry vision reported PLAN: Neurologic: better. f/u any needs. prn ativan. D/w optho and they will see for an exam. Cardiovascular: perfused. vol status up but mobilizing on her own. Respiratory: to ra. is. oob. continued care forward. Gastrointestinal: po diet. Renal/Metabolic: good Uout. ramandeep yusuf Infectious Disease: no abx needs Hematology: stable. hsq Endocrine: no steroids. glu ok. Musculoskeletal: oob. progressive mobility. Psych/Social: f/u with psych needs. 1-2days further prior to medical clearance for psych Supportive and preventative care as ordered. SUP: po VTE prophylaxis: heparin Disposition: to floor Code Status: Full Critical Care Time: 35min Jordin Sanabria DO
[2016-06-08] MEDS: LORazepam TAB(*) 1 MG PO PRN ×2 (16:07→21:16)
[2016-06-08] MEDS ORDERED: guaiFENesin ER TAB 600 MG PO SCH (17:00)
[2016-06-08] MEDS: guaiFENesin ER TAB 600 MG PO SCH (17:33)
[2016-06-08] MEDS ORDERED: CMCS - Melatonin (NF) 3 MG TAB PO PRN (23:55)
[2016-06-09] MEDS: LORazepam TAB(*) 1 MG PO PRN ×4 (01:22→20:00)
[2016-06-09] MEDS: Acetaminophen TAB* 325 MG PO PRN (04:18)
[2016-06-09] MEDS: Heparin VIAL(*) 5000 UNITS/ML VIAL (FIVE THOUSAND) SUBCUT SCH ×3 (05:34→20:04)
[2016-06-09 06:31] LABS: BUN/Creatinine Ratio 21.4 (8-20); Calcium 9.1 mg/dL (8.6-10.3); EGFR Non-African American 129.9 (>60); Potassium 3.6 mmol/L (3.5-5.0)
[2016-06-09] MEDS: Vitamin THERAPEUTIC TAB PO SCH (08:03)
[2016-06-09] MEDS: guaiFENesin ER TAB 600 MG PO SCH ×2 (08:04→20:01)
--- NOTE | 2016-06-09 14:04 | PN ---
Subjective Date of Service: 06/09/16 Interval History: Very sad. Crying at times. Says she now realizes that there ARE people in her life who care for her. Still with blurry vision. Awaiting mental health evaluation Denies other complaints Family History: Unchanged from Admission Social History: Unchanged from Admission Past Medical History: Unchanged from Admission Objective Active Medications: . Acetaminophen (Tylenol Tab*) 650 mg PO Q6H PRN PRN Reason: FEVER/PAIN Last Admin: 06/09/16 04:18 Dose: 650 mg Fentanyl Citrate (Fentanyl*) 25 mcg IV SLOW PU Q4H PRN PRN Reason: PAIN Last Admin: 06/08/16 02:34 Dose: 25 mcg Guaifenesin (Mucinex*) 600 mg PO 0900,2100 [facility] Last Admin: 06/09/16 08:04 Dose: 600 mg Heparin Sodium (Porcine) (Heparin Vial(*)) 5,000 units SUBCUT Q8H [facility] Last Admin: 06/09/16 13:52 Dose: 5,000 units Lorazepam (Ativan Tab(*)) 1 mg PO Q4H PRN PRN Reason: ANXIETY Last Admin: 06/09/16 08:04 Dose: 1 mg Melatonin (Melatonin (Nf)) 3 mg PO BEDTIME PRN; Protocol PRN Reason: Sleep Last Admin: 06/09/16 01:22 Dose: 3 mg Multivitamins (Theragran Tab*) 1 tab PO DAILY [facility] Last Admin: 06/09/16 08:03 Dose: 1 tab Vital Signs 06/08/16 06/08/16 06/08/16 14:00 15:45 16:07 Temperature 97.9 F 97.9 F Pulse Rate 99 106 Respiratory 16 16 Rate Blood Pressure 133/74 119/70 (mmHg) O2 Sat by Pulse 99 95 Oximetry 06/08/16 06/08/16 06/08/16 19:03 19:52 20:00 Temperature 97.2 F Pulse Rate 107 Respiratory 16 16 16 Rate Blood Pressure 99/60 (mmHg) O2 Sat by Pulse 98 98 Oximetry Appearance: NAD Eyes: No Scleral Icterus Ears/Nose/Mouth/Throat: Clear Oropharnyx Neck: Trachea Midline Respiratory: Clear to Auscultation Cardiovascular: NL Sounds; No Murmurs; No JVD Abdominal: NL Sounds; No Tenderness; No Distention Lymphatic: No Cervical Adenopathy Extremities: No Edema Skin: No Rash or Ulcers, - - some self-inflicted cuts on her wrists Neurological: Alert and Oriented x 3 Lines/Tubes/Other Access: Clean, Dry and Intact Peripheral IV Nutrition: Taking PO's Result Diagrams: 06/07/16 05:35 06/09/16 05:28 Microbiology and Other Data: Microbiology 06/04/16 13:06 Aerobic Blood Culture - Final Blood Venous No Growth Day 5 Anaerobic Blood Culture - Final No Growth Day 5 Blood Culture - Final 06/04/16 13:06 Aerobic Blood Culture - Final Blood Venous No Growth Day 5 Anaerobic Blood Culture - Final No Growth Day 5 Blood Culture - Final 06/04/16 14:20 Nasal Screen MRSA (PCR)([facility]) - Final Nasal Mrsa Negative Assess/Plan/Problems-Billing . Assessment: 26 yo female with suicide attempt by toxic ingestion, including ethylene glycol toxicity. Question still about utility of in-hospital ophtho exam. Spoke with Dr. Elena who did not think it would global climate change researcher and most- likely represented FINANCIAL SECRETARY damage (optic nerve atrophy or occipital lobe injury). No antidote and no surgical intervention indicated. Still good to get in-office exam at earliest convenience, but would not delay inpt psych services if indicated. - Patient Problems (1) Suicide attempt by alcohol poisoning Current Visit: Yes Status: Acute Priority: High Code(s): T51.92XA - TOXIC EFFECT OF UNSP ALCOHOL, INTENTIONAL SELF-HARM, INIT Comment: -Psych consult requested (2) Ethylene glycol poisoning Current Visit: Yes Status: Acute Priority: High Code(s): T52.8X1A - TOXIC EFFECT OF ORGANIC SOLVENTS, ACCIDENTAL, INIT Comment: - renal fx ok - visual/occular involvement noted (3) Blurry vision, bilateral Current Visit: Yes Status: Acute Code(s): H53.8 - OTHER VISUAL DISTURBANCES
[2016-06-09] MEDS ORDERED: CMCS: Melatonin (NF) 3 MG TAB PO SCH (21:00)
[2016-06-10] MEDS: LORazepam TAB(*) 1 MG PO PRN (02:00)
[2016-06-10] MEDS: Acetaminophen TAB* 325 MG PO PRN ×2 (03:10→09:08)
[2016-06-10] MEDS: Heparin VIAL(*) 5000 UNITS/ML VIAL (FIVE THOUSAND) SUBCUT SCH (06:43)
[2016-06-10] MEDS: Vitamin THERAPEUTIC TAB PO SCH (09:08)
[2016-06-10] MEDS: guaiFENesin ER TAB 600 MG PO SCH (09:08)
[2016-06-10 09:16] VITALS: BP 105/64
--- NOTE | 2016-06-10 09:55 | PN ---
Progress Note - Progress Note Note: Psychiatry Case discussed with Dr. Guzman. Ms. Cruz requires psychiatric re-hospitalization for safety, evaluation, treatment, and aftercare planning (which we were unable to provide on her recent psychiatric admission due to her medical complication). She has been medically stabilized and cleared for admission to psychiatry. Because of the seriousness of her recent suicidal behavior, there is no way treatment in a less restrictive setting could be justified, and at this point 9.39 legal status is required.
--- NOTE | 2016-06-16 01:21 | TRS ---
DISCHARGE/TRANSFER SUMMARY: DATE OF ADMISSION: 06/04/16 DATE OF DISCHARGE/TRANSFER TO BEHAVIORAL HEALTH UNIT: 06/10/16 STATUS DURING HOSPITALIZATION: Inpatient. PRINCIPAL DISCHARGE DIAGNOSES: 1. Severe anion gap metabolic acidosis secondary to likely methanol injection plus or minus ethylene glycol secondary to suicide attempt. 2. Possible seizure secondary to metabolic derangement. 3. Hypovolemic shock. 4. Coma with metabolic encephalopathy and requirement of intubation secondary to acute combined hypoxic/hypercarbic respiratory failure and mechanical ventilation. 5. Lactic acidosis. 6. Psychological derangement with suicide attempt/major depressive disorder. MEDICATIONS ON DISCHARGE/TRANSFER: 1. Tylenol 650 mg by mouth every 6 hours p.r.n. pain/fever. 2. Mucinex 600 mg by mouth b.i.d. p.r.n. 3. Subcu heparin 5000 units q.8 hours. 4. Ativan 1 mg by mouth every 4 hours p.r.n. anxiety. 5. Melatonin 3 mg by mouth at bedtime p.r.n. insomnia. 6. Multivitamin 1 tablet by mouth once daily. HISTORY OF PRESENT ILLNESS AND HOSPITAL COURSE: Please see the H and P by Dr. Sparkle Gaffney on 06/04/16. In brief, Ms. Cruz is a 26-year-old female who was admitted to the psychiatric unit and was found acutely hyperventilating on the floor. The patient initially presented to the emergency room on June 01 for suicidal ideation and episodes of self-harm. There was cutting and suicide attempts including drinking 2 cups of bleach and half a bowl of Windex. The patient was also taking many tablets of Klonopin and melatonin. The patient was asymptomatic in the emergency room and able to eat and drink. The patient was admitted to the mental health unit. She was having self-harming behavior and was medicated with 2 mg of lorazepam and 5 mg of Haldol. The patient was found to be on the floor. There was question of a fall. The patient had a stat CT of her brain without any intracranial mass or hemorrhage. The patient was the subject of a CAT call and was found to be tachycardic at 120 beats per minute. She was groggy and confused, but responsive to verbal stimuli. The patient was ultimately unresponsive and moved to the ICU urgently. The patient continued to have significant difficulties including metabolically with a profoundly depressed bicarbonate and metabolic acidosis. Her pH nadired at 7.16 by VBG on 06/04/16 with a PCO2 of 21, representing an incompletely compensated respiratory alkalosis that was not fully compensating and overwhelming metabolic acidosis, presumably secondary to methanol and/or ethylene glycol. The patient was placed on a mechanical ventilator as she could not keep up with her respiratory requirement in the setting of acidosis. She was sedated. She was weaned and as her metabolic situation stabilized, she was sedated on the vent with propofol. Please see Dr. Sanabria's ICU notes for more detail. She was transferred out of the ICU by 06/09/16 and I met her at that time. Her main complaint was ongoing blurry vision, originally reported in the ICU. There was initial consultation to Dr. Humberto Elena who I spoke with at length on the telephone. He explained that management would not change with an in-hospital ocular exam and the damage was likely central as opposed to ocular. The patient was transferred to the behavioral health unit without incident. I re-called Dr. Elena at [facility] of the behavioral health unit and he kindly came to see the patient and conducted an ophthalmologic examination - please see his note for more detail. The patient was in stable condition medically without any active issues with complete resolution of a normal laboratory profile. Of course, her psychiatric issues are ongoing and please see Dr. Jesse Craven's note accepting the patient to the behavioral health unit on the day of transfer, 06/10/16. TIME SPENT: Total time taken to arrange Ms. Cruz's transfer was 45 minutes, greater than half that time spent explaining the transfer process to the patient and the major events of her hospitalization. CONDITION ON TRANSFER: Stable, though ongoing visual complaints remain. [id number]/[facility] #: [id number] [facility]
== END 2016-06-10 13:00 | DRG 816 ==
LOC: MEDTELE 08:17 → OBSVTOIN 10:45 → ICU 10:45 → MED 06-08 13:45
PROVIDERS: ADMIT Internal Medicine; ATTEND Internal Medicine
PROC: 5A1945Z Respiratory Ventilation, 24-96 Consecutive Hours (ICD-10-PCS; principal; 2016-06-04)
PROC: 0BH17EZ Insertion of Endotracheal Airway into Trachea, Via Natural or Artificial Opening (ICD-10-PCS; 2016-06-04)
PROC: 02HV33Z Insertion of Infusion Device into Superior Vena Cava, Percutaneous Approach (ICD-10-PCS; 2016-06-04)
DX: T52.8X2A Toxic effect of other organic solvents, intentional self-harm, initial encounter (principal); J96.02 Acute respiratory failure with hypercapnia; R57.1 Hypovolemic shock; R40.20 Unspecified coma; G93.41 Metabolic encephalopathy; R45.851 Suicidal ideations; E87.2 Acidosis; T51.1X2A Toxic effect of methanol, intentional self-harm, initial encounter; J45.909 Unspecified asthma, uncomplicated; F41.9 Anxiety disorder, unspecified; F32.9 Major depressive disorder, single episode, unspecified; R40.2433 Glasgow coma scale score 3-8, at hospital admission; R45.1 Restlessness and agitation; H53.8 Other visual disturbances; Z78.1 Physical restraint status
CPT/HCPCS: 36415; 70450; 71010; 71250; 80048; 80076; 80320; 82140; 82330; 82803; 83605; 83735; 83930; 84100; 85025; 85027; 85610; 87040; 87641; 94003; 94760; A9270-GY; G0480; J0461; J1644; J2060; J2704; J3010; J3480